=== PATIENT | male | born 1985 | race Two or more races ===

== ENCOUNTER 2021-05-04 15:24 | Emergency (ER) | payer MEDICAID ==
[~2021-05-04] VITALS: Ht 165.1 cm; Wt 150.0 kg
[2021-05-04] MEDS ORDERED: IBUPROFEN 800MG TABLET PO ONE (16:15)
[2021-05-04] MEDS ORDERED: ACETAMINOPHEN WITH CODEINE 300/30MG TABLET PO ONE (17:30)
[2021-05-04] MEDS ORDERED: T3 PO (17:34)
[2021-05-04] MEDS ORDERED: IBUP-2030 MT (17:34)
[2021-05-04 17:50] VITALS: BP 135/78
== END 2021-05-04 17:59 | disposition home or self-care (01) ==
LOC: ER 15:24
DX: T16.2XXA Foreign body in left ear, initial encounter (principal); X58.XXXA Exposure to other specified factors, initial encounter; Y93.9 Activity, unspecified; Y92.9 Unspecified place or not applicable
CPT/HCPCS: 99283